=== PATIENT | female | born 1970 | race Caucasian/White ===

== ENCOUNTER 2018-09-17 16:49 | Emergency (ER) | payer BC ==
--- NOTE | 2018-09-17 17:04 | Emergency Department Record ---
History of Present Illness - General Chief Complaint: Chest Pain Stated Complaint: L JAW,ARM PAIN, CHEST HEAVINESS,BACK PAIN Time Seen by Provider: 09/17/18 16:51 Source: Patient, Family Mode of Arrival: Ambulatory Limitations: No limitations - History of Present Illness Initial Comments: 48 yo female presents with chest pain that started yesterday. She denies any history of CAD. She states she noticed yesterday some left jaw pain that has been constant since yesterday. No swelling or dental tenderness. She has been having headaches as well. She also noted a tight feeling in the left upper chest/left shoulder area at times. There does not seem to be any aggravating or alleviating that improve or cause the pain. No pain down the arm. No pain with deep inspiration. She is not short of breath, no sweating, no new fatigue. She did restart HRT about a month ago. Her father had a stent placed in his mid to late 60's. N family history of early CAD or premature deaths. She is not a smoker. No DM, HTN, or elevated cholesterol. MD Complaint: Chest pain -: Days(s) (1) Onset: During rest Pain Location: Left chest (left upper near the shoulder) Pain Radiation: LUE, Jaw/teeth Severity: Mild Severity scale (1-10): 2 Quality: Tightness Consistency: Intermittent Improves With: Nothing Worsens With: Nothing Context: Other Anginal Symptoms: Dyspnea (occasionally but not associated with CP), Nausea ( some over the last few weeks with headaches) Treatments Prior to Arrival: None - Related Data Home Medications Medication Instructions Recorded Confirmed Last Taken Levonorgestrel-Ethin Estradiol 1 tab PO DAILY 09/17/18 09/17/18 Unknown [[id number] Tablet] Allergies Allergy/AdvReac Type Severity Reaction Status Date / Time erythromycin base Allergy SWELLING Verified 09/17/18 16:57 OF THE TONGUE Sulfa (Sulfonamide Allergy SWELLING Verified 09/17/18 16:57 Antibiotics) OF THE TONGUE Travel Screening - Travel/Exposure Within Last 30 Days Have you traveled within the last 30 days?: No Review of Systems Constitutional: Denies: Chills, Fever, Malaise, Weakness Eyes: Denies: Eye discharge ENT: Denies: Congestion, Throat pain Respiratory: Denies: Cough, Hemoptysis, Stridor, Wheezes Cardiovascular: Reports: As per HPI, Chest pain. Denies: Dyspnea on exertion, Edema, Palpitations, Syncope Endocrine: Denies: Fatigue Gastrointestinal: Denies: Abdominal pain, Diarrhea, Nausea, Vomiting Genitourinary: Denies: Dysuria, Frequency Musculoskeletal: Denies: Back pain Skin: Denies: Bruising, Change in color, Rash Neurological: Reports: Headache Psychiatric: Denies: Anxiety Hematological/Lymphatic: Denies: Easy bleeding, Easy bruising Past Medical History - SOCIAL HISTORY Smoking Status: Never smoker Alcohol Use: None Drug Use: None - RESPIRATORY Hx Respiratory Disorders: No - CARDIOVASCULAR Hx Cardio Disorders: No - NEURO Hx Neuro Disorders: No - GI Hx GI Disorders: No - Hx Genitourinary Disorders: No - ENDOCRINE Hx Endocrine Disorders: No - MUSCULOSKELETAL Hx Musculoskeletal Disorders: No - PSYCH Hx Psych Problems: No - HEMATOLOGY/ONCOLOGY Hx Hematology/Oncology Disorders: No Family Medical History Any Significant Family History?: Yes *Cancer Comment: aunt-maternal Hx Heart Disease: Father Physical Exam - General General Appearance: Alert, Oriented x3, Cooperative, No acute distress Limitations: No limitations - Head Head exam: Atraumatic, Normal inspection - Eye Eye exam: Normal appearance. negative: Conjunctival injection, Scleral icterus - ENT ENT exam: Normal exam, Mucous membranes moist Ear exam: Normal external inspection Nasal Exam: Normal inspection Mouth exam: Normal external inspection - Neck Neck exam: Normal inspection. negative: Lymphadenopathy - Respiratory Respiratory exam: Normal lung sounds bilaterally. negative: Accessory muscle use, Decreased breath sounds, Respiratory distress, Rhonchi, Stridor, Wheezes - Cardiovascular Cardiovascular Exam: Regular rate, Normal rhythm, Normal heart sounds. negative : Diastolic murmur, Irregular rhythm, Systolic murmur, Tachycardia Peripheral Pulses: 2+: Radial (R), Radial (L) - GI/Abdominal GI/Abdominal exam: Soft. negative: Tenderness - Rectal Rectal exam: Deferred - exam: Deferred - Extremities Extremities exam: Normal inspection, Full ROM. negative: Calf tenderness, Pedal edema, Tenderness - Back Back exam: Denies: CVA tenderness (R), CVA tenderness (L), Rash noted - Neurological Neurological exam: Alert, Normal gait, Oriented X3 - Psychiatric Psychiatric exam: Normal affect, Normal mood. negative: Agitated, Anxious - Skin Skin exam: Dry, Intact, Normal color, Warm Course Vital Signs 09/17/18 16:54 Temperature 97.7 F Pulse Rate 66 Respiratory 20 Rate Blood Pressure 148/85 Pulse Ox 98 - Reevaluation(s) Reevaluation #1: EKG #1: 16:56 Rate: 60 Rhythm: sinus [place]: normal Intervals: normal ST segments: normal Prior: none Normal EKG 09/17/18 17:00 09/17/18 17:42 The CBC,CMP and Troponin are normal 09/17/18 17:43 The D-dimer is negative with low pretest probability. No hypoxia, tachycardia. No calf or leg tenderness or swelling. 09/17/18 17:48 The HEART Score is low risk. No other current traditional risk factors for CAD ( No HTN, No DM, No Elevated cholesterol, No strong early family history, non smoker). 09/17/18 17:54 The CXR was read as negative. 09/17/18 18:14 I discussed the results with the patient. I explained that her HEART score puts her in the lower risk area. I explained that I can transfer her for further evaluation or DC home with referral. I explained that going home is low risk but not no risk. We discussed signs and symptoms that would warrant an immediate re-evaluation. After discussing the options with her family and answering questions, with shared decision making she still elects DC home to call her PCP Thursday. She understand low risk is not no risk. We discussed that she should immediately go to [facility] or call an ambulance if the symptoms return or any new concerns. 09/17/18 18:50 Medical Decision Making - Lab Data Result diagrams: 09/17/18 17:05 09/17/18 17:05 Disposition Disposition: Discharge Clinical Impression: Chest pain Disposition: Home, Self-Care Condition: (1) Good Instructions: Chest Pain (ED) Additional Instructions: Call your doctor for the next available follow up appointment first of the week Return to the ER or be seen immediately if the chest discomfort returns or any new concerns or questions Review this ER visit and the tests performed with your family doctor Forms: Patient Portal Access Time of Disposition: 18:29 Quality - Quality Measures Quality Measures: N/A - Blood Pressure Screening Does Patient Have Any of the Following: No Blood Pressure Classification: Pre-Hypertensive BP Reading Systolic Measurement: 135 Diastolic Measurement: 72 Screening for High Blood Pressure: < Pre-Hypertensive BP, F/U Documented > [ [id number]] Pre-Hypertensive Follow-up Interventions: Referral to alternative/primary care provider.
[2018-09-17 17:16] LABS: BASO % 0.5 % (0-6); EOS % 1.2 % (0-6); GRAN % 49.5 % (47-80); HEMATOCRIT 40.2 % (35.0-47.0); HEMOGLOBIN 13.1 gm/dl (11.6-16.0); LYMPH % 40.9 % (16-45); MEAN CELL VOLUME 90.7 fl (81-97); MEAN CORPUSCULAR HEMOGLOBIN 29.6 pg (27-33); MEAN CORPUSCULAR HGB CONC 32.6 g/dl (32-36); MEAN PLATELET VOLUME 10.5 fl (7.4-10.4); MONO % 7.9 % (0-9); PLATELET COUNT 320 K/uL (130-400); RED BLOOD COUNT 4.43 M/uL (3.80-5.40); RED CELL DISTRIBUTION WIDTH 13.3 % (11.5-14.5); WHITE BLOOD COUNT W/O DIFF 7.5 K/uL (4.2-12.2)
[2018-09-17 17:29] LABS: INR 1.1; PARTIAL THROMBOPLASTIN TIME 30.3 SECONDS (24.5-39.1)
[2018-09-17 17:30] LABS: BLOOD UREA NITROGEN 14 mg/dL (6-20); CREATININE 0.8 mg/dL (0.5-0.9); EST GLOMERULAR FILTRATION RATE > 60 mL/min
[2018-09-17 17:31] LABS: TOTAL PROTEIN 7.2 g/dL (6.6-8.7)
[2018-09-17 17:32] LABS: GLUCOSE,RANDOM 81 mg/dL (74-109)
[2018-09-17 17:35] LABS: ALB/GLOB RATIO 1.5 (1.1-1.8); ALBUMIN 4.3 g/dL (4.0-5.0); ALKALINE PHOSPHATASE 49 U/L (35-104); ALT/SGPT 11 U/L (<33); AST/SGOT 13 U/L (10.0-35.0)
--- NOTE | 2018-09-20 14:16 | RADIOLOGY REPORT ---
EXAM: CHEST, TWO VIEWS HISTORY: INTERMITTENT MID STERNAL, LEFT JAW, AND LEFT ARM PAIN SINCE YESTERDAY. INTERMITTENT NAUSEA AND HEADACHES FOR THE LAST WEEK. TECHNIQUE: Upright PA and lateral views of the chest were obtained. Comparison: None. FINDINGS: The cardiomediastinal silhouette is normal in size and configuration. The pulmonary vasculature is nondilated. The lungs and pleural spaces are clear. The osseous structures are intact. IMPRESSION: NO RADIOGRAPHIC EVIDENCE OF ACUTE CARDIOPULMONARY DISEASE. JOB NUMBER: [id number] [facility]
== END 2018-09-17 18:32 | disposition home or self-care (01) ==
LOC: ER 16:49
DX: R07.89 Other chest pain (principal); R51 Headache; R10.0 Acute abdomen; R06.00 Dyspnea, unspecified
CPT/HCPCS: 71046; 80053; 84484; 85025; 85379; 85610; 85730; 93005; 93010; 99284